=== PATIENT | male | born 1995 | race Caucasian/White ===

== ENCOUNTER 2024-06-22 10:28 | Emergency (ER) | payer BC, MEDICAID, SELFPAY ==
[2024-06-22 10:35] VITALS: BP 141/91; PULSE 76; RESP 18; TEMP 36.7; O2SAT 99; BMI 27.2
--- NOTE | 2024-06-22 10:46 | XR_ITS ---
WS: [id number] Examination: XR chest 1V portable [id number] Reason for Exam: cp Date: June 22, 2024 Comparison: None. Findings: The cardiomediastinal silhouette is within normal limits. There is no effusion or consolidation. XR/XR chest 1V portable [id number] IMPRESSION: No acute lung process is seen.
--- NOTE | 2024-06-22 10:48 | ECG_ITS ---
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 Measurements Intervals [place] Rate: 70 P: 72 ND: 141 QRS: 80 QRSD: 110 T: 74 QT: 373 QTc: 404 Interpretive Statements SINUS RHYTHM WITH SINUS ARRHYTHMIA POSSIBLE RIGHT VENTRICULAR CONDUCTION DELAY [RSR (QR) IN V1/V2] No previous ECG available for comparison Electronically Signed On 06-22-2024 10:59:25 CDT by Sixto Isaac M.D. [id number] f
--- NOTE | 2024-06-22 10:50 | ED_ITS ---
HPI - Chest Pain 2 General: Chief Complaint: Chest Pain Stated Complaint: bp trouble Time Seen by Provider: 06/22/24 10:33 Source: patient Mode of arrival: ambulatory Limitations: no limitations History of Present Illness: 28-year-old male states that over the la [facility] 2 weeks has been having sharp chest pain states has a mild dyspnea as well states pain is worse with palpation and improved with rest. Denies any radiation of his pain states he had some mild hypertension as well denies any vomiting or diarrhea Associated symptoms: Reports dyspnea; Deny abdominal pain, fever(s), nausea or vomiting Related Data Previous Rx's Medication Instructions Recorded naproxen 500 mg tablet (Naprosyn) 500 mg PO BID PRN pain #20 tabs 06/22/24 Allergies Allergy/AdvReac Type Severity Reaction Status Date / Time No Known Allergies Allergy Verified 05/10/24 11:25 Review of Systems 2 Const: Denies: fever(s), chills, body aches or change in appetite ENMT: Denies: throat pain or dental pain Card: Reports: chest pain Resp: Reports: dyspnea GI: Denies: abdominal pain, nausea, vomiting or diarrhea : Denies: dysuria Musc: Denies: neck pain or back pain Skin/Breast: Denies: rash Neuro: Denies: headache(s) PFSH ED 2 PFSH: Medical History Substance use disorder PTSD (post-traumatic stress disorder) MDD (major depressive disorder) Social History Smoking and tobacco/nicotine status: unknown if used tobacco/nicotine Quit status (tobacco/nicotine): considering quitting Second hand smoke exposure: Yes Current gender identity: Male Physical Exam 2 Const: COMMON NORMALS: no acute distress, patient oriented x3 and healthy appearing HENMT: COMMON NORMALS: normocephalic and atraumatic HEAD & SCALP: n ormocephalic and atraumatic Neck/C-Spine: COMMON NORMALS: full ROM and supple Chest: COMMONS NORMALS: normal inspection of the chest OTHER: point tender to central chest reproduces pain Resp: COMMON NORMALS: normal respiratory effort, No retractions, No use of accessory muscles and clear to auscultation bilaterally AUSCULTATION: clear to auscultation bilaterally Cardio: COMMON NORMALS: regular rate, regular rhythm and No murmurs present (Cardio) RATE: regular rate RHYTHM: regular rhythm GI: COMMON NORMALS: Normal to inspection, nondistended, normoactive bowel sounds present, Soft to palpation, non-tender and no masses PALPATION: Yes Soft to palpation Extremity: COMMON NORMALS: normal to inspection and full ROM Neuro: COMMON NORMALS: patient oriented x3, moves all extremities and no focal motor deficits Psych: COMMON NORMALS: mental status grossly normal, Normal thought process present and cooperative THOUGHT PROCESS: Normal thought process present Skin: COMMON NORMALS: no rashes or lesions noted and no wounds GENERAL SKIN EXAM: no rashes or lesions noted Course 2 Vital Signs: Vital signs: Vital Signs Temperature 98.0 F 06/22/24 10:35 Pulse Rate 76 06/22/24 10:35 Respiratory Rate 18 06/22/24 10:35 Blood Pressure 141/91 06/22/24 10:35 Pulse Oximetry 99 06/22/24 10:35 Oxygen Delivery Me thod Room Air 06/22/24 10:35 MDM - Chest Pain Medical Decision Making Patient presents here chest pain is atypical in nature he is tender on exam likely muscular troponin D-dimer imaging here is all normal no signs of ACS or pulmonary embolism we will place him on Naprosyn he is to follow-up with PCP and return if worsening. Medical Records I reviewed the patient's medical records. Lab Data I reviewed the patient's lab results. 06/22/24 10:54 06/22/24 10:54 Radiology Impressions Chest X-Ray 06/22/24 10:46 IMPRESSION: No acute lung process is seen. Laboratory Results WBC 5.43 10^3/uL (3.29-11.43) 06/22/24 10:54 RBC 4.70 10^6/uL (3.85-5.65) 06/22/24 10:54 Hgb 14.50 g/dL (11.27-16.99) 06/22/24 10:54 Hct 42.7 % (37-53) 06/22/24 10:54 MCV 90.9 fl (82-101) 06/22/24 10:54 MCH 30.9 pg (27-33) 06/22/24 10:54 MCHC 34.0 g/dL (30-55) 06/22/24 10:54 RDW 11.9 % (12.1-15.1) L 06/22/24 10:54 Plt Count 258 10^3/cmm (157-399) 06/22/24 10:54 MPV 8.8 fL (7.4-10.4) 06/22/24 10:54 Neut % (Auto) 44.0 % 06/22/24 10:54 Lymph % (Auto) 42.4 % 06/22/24 10:54 [place] % (Auto) 8.8 % 06/22/24 10:54 Eos % (Auto) 2.6 % 06/22/24 10:54 Baso % (Auto) 1.5 % 06/22/24 10:54 Neut # (Auto) 2.39 10^3/uL (1.8-7.7) 06/22/24 10:54 Lymph # (Auto) 2.3 10^3/uL (0.8-4.8) 06/22/24 10:54 [place] # (Auto) 0.5 10^3/uL (0.2-0.9) 06/22/24 10:54 Eos # (Auto) 0.1 10^3/uL (0.0-0.8) 06/22/24 10:54 Baso # (Auto) 0.1 10^3/uL (0.0-0.1) 06/22/24 10:54 Nucleated RBC % (auto) 0 % 06/22/24 10:54 Nucleated RBCs # 0.0 /100WBC 06/22/24 10:54 D-Dimer <= 0.27 ug/mLFEU (0-0.59) 06/22/24 10:54 Sodium 141 mmol/L (136-145) 06/22/24 10:54 Potassium 4.1 mmol/L (3.5-5.1) 06/22/24 10:54 Chloride 103 mmol/L (98-107) 06/22/24 10:54 Carbon Dioxide 26 mmol/L (22-29) 06/22/24 10:54 Anion Gap 16.1 (5-19) 06/22/24 10:54 BUN 14 mg/dL (6-20) 06/22/24 10:54 Creatinine 0.7 mg/dL (0.7-1.2) 06/22/24 10:54 GFR Calculation 133.3 mL/min (90-130) H 06/22/24 10:54 Glucose 105 mg/dL (65-115) 06/22/24 10:54 Calculated Osmolality 293 mOsm/kg (285-295) 06/22/24 10:54 Calcium 9.2 mg/dL (8.5-10.5) 06/22/24 10:54 Total Bilirubin 0.4 mg/dL (0.15-1.2) 06/22/24 10:54 AST 21 U/L (0-40) 06/22/24 10:54 ALT 23 U/L (0-41) 06/22/24 10:54 Alkaline Phosphatase 70 U/L (40-130) 06/22/24 10:54 Troponin T Baseline < 6 ng/L (0-15) 06/22/24 10:54 Total Protein 7.4 g/dL (6.6-8.7) 06/22/24 10:54 Albumin 4.7 g/dL (3.5-5.2) 06/22/24 10:54 Globulin 2.7 g/dL (1.3-4.6) 06/22/24 10:54 Lipase 24 U/L (13-60) 06/22/24 10:54 All radiology interpretation(s) finalized by discharge EKG Data EKG 1: I personally reviewed and interpreted this EKG as follows: EKG interpretation date: 06/22/24 EKG interpretation time: 10:48 Interpretation: nsr hr [address] or t wave abnormalities qrs 110 qtc 94 Discharge Plan Discharge Patient Disposition: Home Clinical Impression: Chest pain Condition: Stable Prescriptions: New naproxen [Naprosyn] 500 mg tablet 500 mg PO BID PRN (Reason: pain) Qty: 20 0RF Discharge Orders: Discharge ED (Routine); Ordered 06/22/24 Ordered By: Donald Hernandez Discharge Diet: Advance as tolerated Discharge Activity: Resume usual activity Patient Instructions: Chest Pain (ED) Coding Level of Care Code ED Director Of Product Design for Chg Cory
[2024-06-22 11:02] LABS: Basophils # 0.1 10^3/uL (0.0-0.1); Basophils % 1.5 %; Eosinophils # 0.1 10^3/uL (0.0-0.8); Eosinophils % 2.6 %; Hematocrit 42.7 % (37-53); Lymphocytes # 2.3 10^3/uL (0.8-4.8); Lymphocytes % 42.4 %; Mean Corpuscular Hemoglobin 30.9 pg (27-33); Mean Corpuscular Volume 90.9 fl (82-101); Mean Platelet Volume 8.8 fL (7.4-10.4); Monocytes # 0.5 10^3/uL (0.2-0.9); Monocytes % 8.8 %; Neutrophils # 2.39 10^3/uL (1.8-7.7); Nucleated Red Blood Cells % 0 %; Platelet Count 258 10^3/cmm (157-399); Red Cell Distribution Width 11.9 % (12.1-15.1); White Blood Count 5.43 10^3/uL (3.29-11.43)
[2024-06-22] MEDS: ketorolac 30 mg/mL INJ 15 MG IVP (11:04)
[2024-06-22 11:19] LABS: D Dimer <= 0.27 ug/mLFEU (0-0.59)
[2024-06-22 11:28] LABS: Alanine Aminotransferase 23 U/L (0-41); Albumin Level 4.7 g/dL (3.5-5.2); Alkaline Phosphatase 70 U/L (40-130); Anion Gap 16.1 (5-19); Aspartate Amino Transferase 21 U/L (0-40); Blood Urea Nitrogen 14 mg/dL (6-20); Calcium 9.2 mg/dL (8.5-10.5); Carbon Dioxide 26 mmol/L (22-29); Chloride 103 mmol/L (98-107); Creatinine Clr Calc Pharmacy 172.3874; Globulin 2.7 g/dL (1.3-4.6); Glomerular Filtration Rate 133.3 mL/min (90-130); Glucose 105 mg/dL (65-115); Lipase 24 U/L (13-60); Osmolality Calculated 293 mOsm/kg (285-295); Potassium 4.1 mmol/L (3.5-5.1); Sodium 141 mmol/L (136-145); Total Bilirubin 0.4 mg/dL (0.15-1.2); Total Protein 7.4 g/dL (6.6-8.7)
[2024-06-22 11:29] LABS: Troponin(5th) Baseline < 6 ng/L (0-15)
[2024-06-22 12:00] VITALS: BP 106/73; PULSE 67; O2SAT 98
[2024-06-22 12:16] VITALS: BP 114/98; PULSE 69; O2SAT 100
== END 2024-06-22 12:18 | disposition home or self-care (01) ==
PROVIDERS: Emergency Provider Emergency Medicine
DX: R07.9 Chest pain, unspecified (principal); Z77.22 Contact with and (suspected) exposure to environmental tobacco smoke (acute) (chronic)
CPT/HCPCS: 36415; 71045; 80053; 83690; 84484; 85025; 85378; 93005; 96374; 99285; J1885